=== PATIENT | female | born 1960 | race Caucasian/White ===

== ENCOUNTER 2021-04-03 08:22 | Day surgery (SDC) | payer OTHER, MEDICARE, SELFPAY ==
[2021-03-31 12:17] LABS: BASOPHILS % (AUTO) 0.5 % (0.0-2.0); EOSINOPHILS # (AUTO) 0.2 K/uL (0.0-0.4); EOSINOPHILS % (AUTO) 2.3 % (0.0-4.0); HEMATOCRIT 41.4 % (36-48); HEMOGLOBIN 13.8 g/dL (12.0-16.0); LYMPHOCYTES # (AUTO) 1.9 K/uL (1.0-5.5); MEAN CORPUSCULAR HEMOGLOBIN 28 pg (27-31); MEAN CORPUSCULAR HGB CONC 33 % (32-36); MEAN CORPUSCULAR VOLUME 83 fL (79.0-98.0); MONOCYTES # (AUTO) 0.7 K/uL (0.0-1.0); MONOCYTES % (AUTO) 9.8 % (1.7-9.3); NEUTROPHILS # (AUTO) 4.2 K/uL (1.8-7.7); NEUTROPHILS % (AUTO) 60.4 % (40.0-70.0); PLATELET COUNT (AUTO) 285 K/uL (130-430); RED CELL DISTRIBUTION WIDTH 15.4 % (9.0-15.0)
[2021-03-31 12:35] LABS: INR 0.9 (0.8-1.2); PROTHROMBIN TIME 9.9 SECS (9.5-12.5)
[2021-03-31 12:36] LABS: ALBUMIN 3.4 g/dL (3.4-4.8); CALCIUM 9.3 mg/dL (8.4-11.0); CREATININE 0.77 mg/dL (0.55-1.30); POTASSIUM 4.4 mmol/L (3.5-5.1); TOTAL BILIRUBIN 0.5 mg/dL (0.0-1.0)
[~2021-04-03] VITALS: Ht 177.8 cm; Wt 145.1 kg
[2021-04-03] MEDS ORDERED: PROPOFOL 200MG/ 20ML VIAL (DIPRIVAN) IV ONE (10:40)
[2021-04-03] MEDS ORDERED: LIDOCAINE 2%, 20 ML MDV IM ONE (10:40)
[2021-04-03 12:32] VITALS: BP_SYST 126
== END 2021-04-03 12:20 | disposition home or self-care (01) ==
LOC: SDS 08:22 → SMU 08:31 → SDS 12:20
PROVIDERS: ATTEND Internal Medicine
DX: Z12.11 Encounter for screening for malignant neoplasm of colon (principal); K29.50 Unspecified chronic gastritis without bleeding; D12.2 Benign neoplasm of ascending colon; K57.30 Diverticulosis of large intestine without perforation or abscess without bleeding; K44.9 Diaphragmatic hernia without obstruction or gangrene; K64.8 Other hemorrhoids; G47.33 Obstructive sleep apnea (adult) (pediatric); Z80.0 Family history of malignant neoplasm of digestive organs; Z79.899 Other long term (current) drug therapy
CPT/HCPCS: 36415 ×2; 43239; 45380; 71046; 80053; 85025; 85610; 85730; 87081; 87426; 88305; 88312; 88313; 93005; 96365; G0378; J2001; J2704